=== PATIENT | female | born 1960 | race African-American/Black ===

== ENCOUNTER 2016-10-15 12:53 | Emergency (ER) | payer OTHER ==
[2016-10-15 11:49] LABS: BASOPHILS 0.5 %; BASOPHILS ABSOLUTE 0.03 10/3/uL (0.0-0.16); EOSINOPHILS 7.9 %; EOSINOPHILS ABSOLUTE 0.52 10/3/uL (0.0-0.53); ER CBC TAT 0 Hrs 21 Mins; HEMATOCRIT 36.5 % (36.0-48.0); HEMOGLOBIN 12.2 g/dL (12.0-16.0); LYMPHOCYTES 32.6 %; LYMPHOCYTES ABSOLUTE 2.15 10/3/uL (0.67-4.30); MANUAL DIFF NO %; MEAN CORPUS HGB CONC 33.4 g/dL (32.0-36.0); MEAN CORPUSCULAR VOLUME 83.9 fL (80-100); MEAN PLATELET VOLUME 10.3 fL (9.2-13.0); MONOCYTES 8.8 %; MONOCYTES ABSOLUTE 0.58 10/3/uL (0.21-1.20); NEUTROPHILS 50.2 %; NEUTROPHILS ABSOLUTE 3.31 10/3/uL (2.02-8.40); PLATELET COUNT 258 10/3/uL (150-400); RBC DISTRIBUTION WIDTH 15.5 % (12.0-16.0); RED CELL COUNT 4.35 10/6/uL (4.0-5.6); WHITE BLOOD CELLS 6.6 10/3/uL (4.5-10.5)
[2016-10-15 11:59] LABS: A/G RATIO 0.8 (0.7-1.9); ALBUMIN 3.5 G/DL (3.5-5.0); ALKALINE PHOSPHATASE 99 U/L (45-117); BUN (BLOOD UREA NITROGEN) 10 MG/DL (6-23); CALCIUM, SERUM 8.9 MG/DL (8.5-10.4); CHLORIDE, SERUM 109 MMOL/L (96-112); CO2 (CARBON DIOXIDE) 28 MMOL/L (24-34); CREATININE 0.69 MG/DL (0.55-1.02); GFR AFRICAN AMERICAN 113 ML/MIN (>=60); GFR NON AFRICAN AMERICAN 97 ML/MIN (>=60); GLOBULIN 4.3 G/DL (2.5-4.1); GLUCOSE, SERUM 83 MG/DL (60-99); POTASSIUM, SERUM 3.5 MMOL/L (3.5-5.3); SGOT(AST) 32 U/L (5-40); SGPT(ALT) 38 U/L (5-65); SODIUM, SERUM 143 MMOL/L (135-148); TOTAL BILIRUBIN 0.7 MG/DL (0-1.2); TOTAL PROTEIN 7.8 G/DL (6.0-8.5); TROPONIN I 0.03 NG/ML (<0.05)
[2016-10-15 12:02] LABS: INTERNATIONAL NORMAL RATI 1.2 UNITS (-); PROTIME (NOT ORD) 14.8 SEC (12.0-14.5)
[~2016-10-15 12:53] MED LIST: ASAB PO; CLORAZ DIPOT PO; COREG3 PO; LIPITOR40 PO; MULTIVIT/MIN PO; PRIN20 PO; PRIN5 PO; VICODIN HP1 TAB PO
== END 2016-10-15 13:00 | disposition home or self-care (01) ==
LOC: ER 12:53
PROVIDERS: Emergency Medicine
DX: R00.2 Palpitations (principal); I25.2 Old myocardial infarction; I10 Essential (primary) hypertension; I25.10 Atherosclerotic heart disease of native coronary artery without angina pectoris; Z79.82 Long term (current) use of aspirin; Z79.899 Other long term (current) drug therapy; Z95.1 Presence of aortocoronary bypass graft
CPT/HCPCS: 71010; 80053; 84484; 85025; 85610; 93005; 99285